=== PATIENT | male | born 2000 | race Two or more races ===

== ENCOUNTER 2024-10-29 07:08 | Emergency (ER) | payer MEDICAID, SELFPAY ==
[2024-10-29 07:13] VITALS: BP 138/81; PULSE 77; RESP 18; TEMP 36.7; O2SAT 97; BMI 25.4
--- NOTE | 2024-10-29 07:24 | XR_ITS ---
Examination: CT lumbar spine, without contrast. 2-D sagittal reconstructions. 2-D coronal reconstructions. 3-D reconstructions. Date and time of exam:October 29, 2024 0746 hrs. Indications: Lower back pain beginning 3 days ago CTDI: vol (mGy):44 DLP: (mGycm):524 Technique: Multiple 1.25 mm axial sections of the lumbar spine without intravenous contrast have been obtained. 2-D sagittal and coronal reconstructions have been obtained. 3-D reconstructions have been obtained. Low dose protocols were performed. One or more of the following dose reduction techniques were used; automated exposure control, adjustment of the mA and/or KV according to patient size, use of iterative reconstruction technique. Findings: Satisfactory alignment lumbar vertebral bodies No lumbar vertebral body compression fracture Moderate disc narrowing posteriorly L5-S1 Lumbar pedicles laminated transverse and posterior spinous processes intact L5-S1 5 mm central lumbar disc bulge contiguous with the right S1 nerve root L4-L5 2 mm central lumbar disc bulge L3-L4 no disc protrusion L2-L3 no disc protrusion L1-L2 no disc protrusion Impression: Moderate disc narrowing posteriorly L5-S1 L5-S1 5 mm central lumbar disc bulge contiguous with the right S1 nerve root MRI lumbar spine follow-up would best assess for soft tissue acquired spinal stenosis
[2024-10-29] MEDS: DIAZEPAM 5 MG TABLET 10 MG PO (08:03)
[2024-10-29] MEDS: IBUPROFEN TAB 400 MG TABLET 800 MG PO (08:04)
--- NOTE | 2024-10-29 08:41 | PD.EDBACK ---
ED Back Injury Pain RME/HPI General Chief Complaint: Back Pain/Injury Stated Complaint: SHARP BILAT FLANK/BACK PAIN X WEDS Time Seen by Provider: 10/29/24 07:13 Arrival date/time: 10/29/24 07:08 24-year-old male presents emerged department with complaints of bilateral lower back pain patient ports pain worse with movement patient denies any dysuria patient reports no hematuria no nausea or vomiting Limitations: no limitations Related Data Previous Rx's ?Medication ?Instructions ?Recorded naproxen 250 mg tablet 250 mg PO BID PRN pain #30 tabs 05/17/23 cyclobenzaprine 10 mg tablet 10 mg PO TID PRN muscle spasm 10 10/29/24 days #30 tab-caps ibuprofen 800 mg tablet 800 mg PO TID PRN pain #30 tabs 10/29/24 Allergies Allergy/AdvReac Type Severity Reaction Status Date / Time No Known Allergies Allergy Verified 10/29/24 07:09 Review of Systems Review of Systems Systems Reviewed: All systems reviewed, normal except as documented Constitutional Constitutional: Reports system reviewed and no additional complaints, except as documented, Denies fever(s) and Denies headache(s) Eyes Eyes: Reports system reviewed and no additional complaints, except as documented and Denies blurry vision ENT Ears, Nose, Mouth, and Throat: Reports system reviewed and no additional complaints, except as documented, Denies headache(s), Denies nasal congestion and Denies nasal discharge Cardiovascular Cardiovascular: Reports system reviewed and no additional complaints, except as documented, Denies chest pain and Denies dyspnea Respiratory Respiratory: Reports system reviewed and no additional complaints, except as documented, Denies chest congestion, Denies cough and Denies dyspnea Gastrointestinal Gastrointestinal: Reports system reviewed and no additional complaints, except as documented and Denies abdominal pain Musculoskeletal Musculoskeletal: Reports system reviewed and no additional complaints, except as documented, Denies abnormal gait, Reports back pain, Denies numbness and Denies tingling Integumentary/Breasts Skin/Breast: Reports system reviewed and no additional complaints, except as documented and Denies rash Neurologic Neurologic: Reports system reviewed and no additional complaints, except as documented, Reports as per HPI, Denies abnormal gait, Denies headache(s), Denies numbness and Denies tingling Past Medical History Past Medical History CARDIAC: Negative Congestive Heart Failure RESPIRATORY: Positive Respiratory Disorders (pneumothorax); Negative Chronic Obstructive Pulmonary Disease (COPD) GENITOURINARY: Negative Renal Disease ENDOCRINE: Negative Diabetes Mellitus Type 1 or Diabetes Mellitus Type 2 Social History SMOKING STATUS: Never smoker SUBSTANCE USE: marijuana (smokes) ED Exam General Limitations: Present no limitations General appearance: Present alert and in no apparent distress Head Head exam: Present atraumatic Eye Eye exam: Present normal appearance, PERRL and EOMI ENT ENT exam: Present normal exam, normal oropharynx and mucous membranes moist Neck Neck exam: Present normal inspection, full ROM and trachea midline Chest Chest inspection: Present normal inspection and symmetric chest wall rise Respiratory Respiratory exam: Present normal lung sounds bilaterally Cardiovascular Cardiovascular exam: Present regular rate, normal rhythm and normal heart sounds Abdominal Exam Abdominal exam: Present soft and normal bowel sounds; Absent distention, tenderness, guarding, rebound or rigidity Extremities Exam Extremities exam: Present normal inspection and full ROM Back Exam Back exam: Present normal inspection, full ROM, muscle spasm and paraspinal tenderness; Absent CVA tenderness (R) or CVA tenderness (L) Neurological Exam Neurological exam: Present alert, oriented X3 and CN II-XII intact Psychiatric Psychiatric exam: Present normal affect and normal mood Skin Skin exam: Present warm, dry, intact and normal color Course Quality Measures none Orders Category Date Time Status CT lumbar spine wo con Stat Exams 10/29/24 07:24 Completed UA, C/S IF [Urinalysis, C/S if Indicated] Stat Lab 10/29/24 08:14 Completed Diazepam [Valium] Med 10/29/24 07:24 Discontinued 10 mg PO X1 ONE Ibuprofen Tab [Motrin Tab] Med 10/29/24 07:24 Discontinued 800 mg PO X1 ONE Vital Signs Vital signs: Vital Signs Temperature 98.1 F 10/29/24 07:13 Pulse Rate 77 10/29/24 07:13 Respiratory Rate 18 10/29/24 07:13 Blood Pressure 138/81 H 10/29/24 07:13 Pulse Oximetry (%) 97 10/29/24 07:13 Oxygen Delivery Method Room Air 10/29/24 07:13 O2 saturation 97% room air within normal limits Back Pain / Injury MDM Narrative MDM Narrative:: 24-year-old male presents emerged department with complaints of bilateral lower back pain patient ports pain worse with movement patient denies any dysuria patient reports no hematuria no nausea or vomiting UA and CT scan obtained no acute emergent findings noted On CT scan patient has lumbar disc bulge consistent with patient systems Patient medicated here discharged home with pain meds and muscle lectures Patient discharged home in no distress to follow-up with primary care doctor in the next 24 to 48 hours and for any worsening symptoms to return to the ER immediately Patient data External records reviewed:: [facility] previous records Clinical information provided by:: patient Social determinants that could affect healthcare access:: none Patient has the following chronic illnesses:: None How is presenting disease/condition affected by chronic disease/condition?: no chronic disease Evaluation data The following diagnostics were reviewed and interpreted by me:: lab results and radiology exam(s) Lab and/or radiology exams considered but not ordered:: Labs and radiology obtained Interpretation Summary: Reviewed by me Medications / Prescriptions Medications or Prescriptions considered but not ordered:: Given Medication administrations:: Medication Administration History Discontinued Medications Diazepam (Diazepam 5 Mg Tablet) 10 mg PO X1 ONE Stop: 10/29/24 07:25 Last Admin: 10/29/24 08:03 Dose: 10 mg Documented By: BRIDGET Ibuprofen (Ibuprofen Tab 400 Mg Tablet) 800 mg PO X1 ONE Stop: 10/29/24 07:25 Last Admin: 10/29/24 08:04 Dose: 800 mg Documented By: BRIDGET Given Consultations Consultation(s) initiated? (list below): No Diagnosis Differential diagnosis back pain/injury: lumbar radiculopathy, sciatica and strain of lumbar region Most likely diagnosis given after review of the tests above:: Back pain Admission Indicated Admission indicated?: not indicated Admission Request Was there a request for admission?: No Disposition Plan Disposition Plan: Discharge Discharge Attestation Discharge Attestation: The patient and all family members were given an opportunity to ask questions and understood the discharge instructions. Discharge instructions specifically effects, indications for sooner follow up or return to the emergency department, and the expected course of current diagnosis. Patient condition: Stable Discharge Plan Plan Patient Disposition: HOME (Self Care) Disposition Comment: Stable Prescriptions/Referrals Prescriptions/Med Rec: New cyclobenzaprine 10 mg tablet 10 mg PO TID PRN (Reason: muscle spasm) 10 Days Qty: 30 0RF ibuprofen 800 mg tablet 800 mg PO TID PRN (Reason: pain) Qty: 30 0RF No Action naproxen 250 mg tablet 250 mg PO BID PRN (Reason: pain) Qty: 30 0RF Referrals: Val Reynoso FNP [Primary Care Provider] - 11/01/24 Problem List Clinical Impression: Bulging lumbar disc Patient/Caregiver Discharge Instructions Education Materials: Back Safety: Sitting Additional Instructions: Please follow up with your primary care doctor in the next 24-48hrs for any worsening symptoms return here immediately Print Language: Prydeinig Stand Alone Forms: Suzie Award Info., Work/School Release, Patient Portal Info Letter MICHAEL/RAZ Supervising Physician MICHAEL/RAZ Supervising Physician: dr Ackerman
[2024-10-29 09:01] LABS: Bilirubin,Urine Negative (Negative); Blood,Urine 1+ (Negative); Clarity,Urine Clear (Clear/Hazy); Collection Type, Urine Clean Catch; Color,Urine Colorless (Lt Yel-Yel); Culture Indicated,Urine Not Indicated; Glucose, Urine Negative (Negative); Ketones,Urine Negative (Negative); Leukocyte Esterase,Urine Negative (Negative); Nitrite,Urine Negative (Negative); PH,Urine 6.5 (5.0-7.0); Protein,Urine Negative (Neg - Trace); RBC,Urine 2 /hpf (0-3); Specific Gravity,Urine 1.011 (1.001-1.035); Squamous Epithelial Cell,Urine 0 /hpf (0-5); Urobilinogen,Urine Negative mg/dL (0.0-1.0); WBC,Urine 1 /hpf (0-5)
== END 2024-10-29 09:24 | disposition home or self-care (01) ==
PROVIDERS: Nurse Practitioner Primary Care; Emergency Provider Emergency Medicine; PCP Nurse Practitioner Family
DX: M51.360 Other intervertebral disc degeneration, lumbar region with discogenic back pain only (principal)
CPT/HCPCS: 72131; 81001; 99284; A9270